=== PATIENT | male | born 1935 | race Caucasian/White ===

== ENCOUNTER 2018-08-17 11:01 | Emergency (ER) | payer OTHER ==
[~2018-08-17] VITALS: Ht 180.3 cm; Wt 112.0 kg
[~2018-08-17 11:01] MED LIST: APAP/HYDROCODON1 T13 PO; CARDIZEM CD180 MG PO; FLE10 PO; FLEXERIL10 MG PO; MSC15 PO; NEU300 PO; NORCO1 TA2 PO; PRAMIPEXOLE; PRAVASTATIN; SERTRALINE; SOTALOL80 MG PO
[2018-08-17 11:04] VITALS: Ht 180.3 cm; Wt 112.0 kg
[2018-08-17 11:46] LABS: BASOPHIL % 0.2 % (0-2); PLATELET COUNT 192 x10^3mcL (130-400); RED CELL DISTRIBUTION WIDTH 14.1 % (11.5-14.5)
[2018-08-17 11:53] LABS: CALCIUM 9.2 mg/dL (8.5-10.1); CARBON DIOXIDE 28.4 mmol/L (21-32); CHLORIDE SERUM 106 mmol/L (98-107); CREATININE SERUM 0.9 mg/dL (0.7-1.3); GLUCOSE SERUM 103 mg/dL (74-106); POTASSIUM SERUM 3.9 mmol/L (3.5-5.1); SODIUM SERUM 140 mmol/L (136-145)
[2018-08-17 12:00] LABS: ALBUMIN 3.6 g/dL (3.4-5.0); ALKALINE PHOSPHATASE 122 U/L (46-116); ALT/SGPT 19 U/L (16-63); AST/SGOT 13 U/L (15-37); BILIRUBIN TOTAL 1.04 mg/dL (0.20-1.00); TOTAL PROTEIN, SERUM 7.3 g/dL (6.4-8.2)
[2018-08-17 12:47] VITALS: BP 125/93
== END 2018-08-17 12:47 | disposition home or self-care (01) ==
LOC: ED 11:01
PROVIDERS: Emergency Medicine
DX: I48.2 Chronic atrial fibrillation (principal); Z79.01 Long term (current) use of anticoagulants
CPT/HCPCS: 36415; Q0092

== ENCOUNTER 2018-09-10 07:40 | Inpatient (IN) | payer OTHER ==
[~2018-09-10] VITALS: Ht 180.3 cm; Wt 116.1 kg
[~2018-09-10 07:40] MED LIST changes: -CARDIZEM CD180 MG PO; +DILTIAZEM HYDRO90 MG PO
[2018-09-10 07:44] VITALS: Ht 180.3 cm; Wt 116.1 kg
[2018-09-10 08:28] LABS: CALCIUM 8.5 mg/dL (8.5-10.1); CARBON DIOXIDE 26.4 mmol/L (21-32); CHLORIDE SERUM 107 mmol/L (98-107); GLUCOSE SERUM 116 mg/dL (74-106); POTASSIUM SERUM 3.9 mmol/L (3.5-5.1); SODIUM SERUM 142 mmol/L (136-145)
[2018-09-10 08:30] LABS: BASOPHIL % 0.3 % (0-2); PLATELET COUNT 192 x10^3mcL (130-400)
[2018-09-10 08:32] LABS: ALBUMIN 3.5 g/dL (3.4-5.0); ALKALINE PHOSPHATASE 110 U/L (46-116); ALT/SGPT 30 U/L (16-63); AST/SGOT 16 U/L (15-37); BILIRUBIN TOTAL 0.83 mg/dL (0.20-1.00); MAGNESIUM 1.8 mg/dL (1.8-2.4); TOTAL PROTEIN, SERUM 6.7 g/dL (6.4-8.2)
[2018-09-10 08:39] LABS: T3 TOTAL 0.95 ng/mL
[2018-09-10 08:41] LABS: FREE T4 0.9 ng/dL (0.76-1.46); FREE THYROXINE INDEX 2.1 ug/dL (1.4-4.5); T4(THYROXINE) 5.9 ug/dL (4.7-13.3)
[2018-09-10 08:42] LABS: RED CELL DISTRIBUTION WIDTH 14.8 % (11.5-14.5)
[2018-09-10] MEDS ORDERED: TRAZODONE100 MG PO (10:59)
[2018-09-10] MEDS ORDERED: PROSCAR5 MG PO (10:59)
[2018-09-10] MEDS ORDERED: COUMADIN2.5 MG PO (11:53)
[2018-09-10 12:15] LABS: CHOLESTEROL/HDL RATIO 2.9; PHOSPHOROUS 3.3 mg/dL (2.5-4.9)
[2018-09-10 14:43] VITALS: BP 123/95
[2018-09-10] MEDS ORDERED: COUMADIN5 MG PO (15:22)
[2018-09-10 17:27] VITALS: BP 126/94
[2018-09-10 17:35] VITALS: BP 126/94
[2018-09-10 17:37] LABS: UA SPECIFIC GRAVITY 1.025 (1.005-1.035); microscopic required? YES; urine erythrocyte TRACE (NEGATIVE)
[2018-09-10 17:48] LABS: AMPHETAMINE QUAL UR NONE DETECTED (See below)
[2018-09-10 20:54] VITALS: BP 130/88
[2018-09-11 05:51] VITALS: BP 128/94
[2018-09-11 07:08] LABS: CALCIUM 8.5 mg/dL (8.5-10.1); CARBON DIOXIDE 28.6 mmol/L (21-32); CHLORIDE SERUM 108 mmol/L (98-107); GLUCOSE SERUM 90 mg/dL (74-106); MAGNESIUM 1.8 mg/dL (1.8-2.4); PHOSPHOROUS 3.3 mg/dL (2.5-4.9); POTASSIUM SERUM 4.1 mmol/L (3.5-5.1); SODIUM SERUM 144 mmol/L (136-145)
[2018-09-11 07:48] LABS: BASOPHIL % 0.2 % (0-2); RED CELL DISTRIBUTION WIDTH 13.5 % (11.5-14.5)
[2018-09-11 07:51] LABS: PLATELET COUNT 166 x10^3mcL (130-400)
[2018-09-11 10:11] VITALS: BP 127/88
[2018-09-11 13:13] VITALS: BP 116/80
[2018-09-11 16:22] VITALS: BP 127/87
[2018-09-11 21:22] VITALS: BP 131/88
[2018-09-12 05:39] VITALS: BP 123/83
[2018-09-12 07:01] LABS: CALCIUM 8.8 mg/dL (8.5-10.1); CARBON DIOXIDE 30.7 mmol/L (21-32); CHLORIDE SERUM 107 mmol/L (98-107); GLUCOSE SERUM 94 mg/dL (74-106); MAGNESIUM 1.9 mg/dL (1.8-2.4); PHOSPHOROUS 3.5 mg/dL (2.5-4.9); SODIUM SERUM 143 mmol/L (136-145)
[2018-09-12 07:16] LABS: BASOPHIL % 0.3 % (0-2); PLATELET COUNT 162 x10^3mcL (130-400)
[2018-09-12 07:22] LABS: RED CELL DISTRIBUTION WIDTH 14.6 % (11.5-14.5)
[2018-09-12 12:45] VITALS: BP 116/82
[2018-09-12 17:40] VITALS: BP 109/82
[2018-09-12 21:00] VITALS: BP 122/65
[2018-09-13 06:13] VITALS: BP 110/74
[2018-09-13 07:19] LABS: CALCIUM 8.8 mg/dL (8.5-10.1); CARBON DIOXIDE 28.4 mmol/L (21-32); CHLORIDE SERUM 106 mmol/L (98-107); CREATININE SERUM 0.9 mg/dL (0.7-1.3); GLUCOSE SERUM 92 mg/dL (74-106); MAGNESIUM 1.8 mg/dL (1.8-2.4); PHOSPHOROUS 3.7 mg/dL (2.5-4.9); POTASSIUM SERUM 3.7 mmol/L (3.5-5.1); SODIUM SERUM 141 mmol/L (136-145)
[2018-09-13 08:14] LABS: BASOPHIL % 0.2 % (0-2); PLATELET COUNT 159 x10^3mcL (130-400)
[2018-09-13 08:50] VITALS: BP 118/57
[2018-09-13 10:10] VITALS: BP 118/57
[2018-09-13 12:55] VITALS: BP 132/78
[2018-09-13] MEDS ORDERED: ELIQUIS5 MG PO (13:18)
[2018-09-13 13:55] VITALS: BP 132/78
== END 2018-09-13 14:52 | disposition home or self-care (01) | DRG 291 ==
LOC: ED 07:40 → DU 11:20
PROVIDERS: Emergency Medicine; Family Medicine
PROC: 4B02XTZ Measurement of Cardiac Defibrillator, External Approach (ICD-10-PCS; principal; 2018-09-12)
DX: I11.0 Hypertensive heart disease with heart failure (principal); N17.0 Acute kidney failure with tubular necrosis; I50.21 Acute systolic (congestive) heart failure; J96.00 Acute respiratory failure, unspecified whether with hypoxia or hypercapnia; I48.92 Unspecified atrial flutter; I47.2 Ventricular tachycardia; I47.1 Supraventricular tachycardia; E78.00 Pure hypercholesterolemia, unspecified; E66.9 Obesity, unspecified; E86.0 Dehydration; E78.5 Hyperlipidemia, unspecified; G47.33 Obstructive sleep apnea (adult) (pediatric); M48.00 Spinal stenosis, site unspecified; Z96.652 Presence of left artificial knee joint; F17.290 Nicotine dependence, other tobacco product, uncomplicated; I45.10 Unspecified right bundle-branch block; F41.9 Anxiety disorder, unspecified; I48.2 Chronic atrial fibrillation; N40.0 Benign prostatic hyperplasia without lower urinary tract symptoms; Z68.35 Body mass index [BMI] 35.0-35.9, adult; Z95.810 Presence of automatic (implantable) cardiac defibrillator; Z88.5 Allergy status to narcotic agent; Z79.01 Long term (current) use of anticoagulants; Z79.899 Other long term (current) drug therapy; Z98.49 Cataract extraction status, unspecified eye; Z95.2 Presence of prosthetic heart valve; Z80.8 Family history of malignant neoplasm of other organs or systems; Z82.49 Family history of ischemic heart disease and other diseases of the circulatory system; Z72.89 Other problems related to lifestyle
CPT/HCPCS: 83880; 84439; 94150; A9500; J2785; J7030; Q0092

== ENCOUNTER 2019-05-25 18:47 | Inpatient (IN) | payer OTHER ==
[~2019-05-25] VITALS: Ht 185.4 cm; Wt 103.0 kg
[~2019-05-25 18:47] MED LIST changes: +COUMADIN2.5 MG PO; +COUMADIN5 MG PO; +ELIQUIS5 MG PO; +PROSCAR5 MG PO; -SERTRALINE; +SERTRALINE PO; +TRAZODONE100 MG PO
[2019-05-25 19:45] LABS: BASOPHIL % 0.3 % (0-2); PLATELET COUNT 227 x10^3mcL (130-400); RED CELL DISTRIBUTION WIDTH 14.3 % (11.5-14.5)
--- NOTE | 2019-05-25 19:52 | NUR ---
PT AAOX4, NO S/S OF DISTRESS NOTED, RESPIRATIONS EVEN AND UNLABORED. PT C/O BLQ ABD PAIN X 2 DAYS WITH N/V/D X 1 DAY. PT REPORTS VOMITING LAST NIGHT AND THIS MORNING WITH 7 EPISODES OF DIARRHEA TODAY. PT DENIES CHEST PAIN, SOB OR DIZZINESS. PT SITTING UP IN BED, TALKING IN FULL CLEAR SENTENCES.
[2019-05-25 19:59] LABS: CALCIUM 8.9 mg/dL (8.5-10.1); CARBON DIOXIDE 21.9 mmol/L (21-32); CHLORIDE SERUM 107 mmol/L (98-107); GLUCOSE SERUM 157 mg/dL (74-106); POTASSIUM SERUM 3.3 mmol/L (3.5-5.1); SODIUM SERUM 142 mmol/L (136-145)
[2019-05-25 20:03] LABS: ALBUMIN 3.4 g/dL (3.4-5.0); ALKALINE PHOSPHATASE 90 U/L (46-116); ALT/SGPT 17 U/L (16-63); AST/SGOT 12 U/L (15-37); BILIRUBIN TOTAL 0.65 mg/dL (0.20-1.00); LIPASE 195 IU/L (73-393)
[2019-05-25 20:29] LABS: UA SPECIFIC GRAVITY >=1.030 (1.005-1.035); microscopic required? YES; urine erythrocyte TRACE (NEGATIVE)
--- NOTE | 2019-05-25 20:41 | NUR ---
PT TAKEN TO CT VIA RPETER.
--- NOTE | 2019-05-25 20:48 | NUR ---
PT BACK FROM CT WITHOUT INCIDENT.
--- NOTE | 2019-05-25 20:55 | NUR ---
DR KHOURY MADE AWARE OF PT HR 116, NEW ORDER FOR NS BOLUS. PT MADE AWARE.
--- NOTE | 2019-05-25 21:28 | NUR ---
PT SITTING UP IN BED, PT REPORTS NAUSEA HAS IMPROVED. PT DENIES PAIN AT THIS IM. PT TALKING WITH AT BEDSIDE, NO S/S OF DISTRESS NOTED.
--- NOTE | 2019-05-25 22:38 | NUR ---
PT SITTING UP IN BED, NO S/S OF DISTRESS NOTED. PT MADE AWARE OF ADMISSION.
[2019-05-25] MEDS ORDERED: SERTRALINE50 M1 PO (22:46)
[2019-05-25] MEDS ORDERED: FINASTERIDE (22:46)
[2019-05-25] MEDS ORDERED: DILTIAZEM HCL120 M2 PO (22:46)
[2019-05-25] MEDS ORDERED: SOTALOL HCL80 MG PO (22:46)
[2019-05-25] MEDS ORDERED: LIPITOR40 MG PO (22:47)
[2019-05-25] MEDS ORDERED: MIRAPEX0.25 MG PO (22:47)
[2019-05-25] MEDS ORDERED: ELIQUIS5 M1 PO (22:47)
[2019-05-25] MEDS ORDERED: CELEBREX50 M1 (22:48)
[2019-05-25] MEDS ORDERED: MORPHINE SULFAT15 MG PO (22:48)
[2019-05-25] MEDS ORDERED: TRAZODONE100 MG PO (22:48)
--- NOTE | 2019-05-25 23:14 | NUR ---
PT SITTING UP IN BED, USING TABLET, NO S/S OF DISTRESS NOTED. PT DENIES PAIN AT THIS TIME.
--- NOTE | 2019-05-25 23:23 | NUR ---
REPORT GIVEN TO EMELIA ECKERT TO ASSUME CARE OF PT.
[2019-05-25 23:59] VITALS: BP 122/72
--- NOTE | 2019-05-26 00:09 | NUR ---
RECEIVED PT FROM ER, PT ADMIT FOR A.FIB WITH RVR, PT IS A/O X4, VERBAL RESPONSIVE, ABLE TO ANSWER ALL QUESTIONS. LUNG SOUND CLEAR BILATERAL, NO COUGH, NO SOB. PT IS ON TELE 6, A.FIB, DENY ANY CHEST PAIN OR DISCOMFORT, BOWEL SOUND PRSENT ALL 4 QUADRANTS, NO DISTENTION, NO TENDER. PEDAL PULSE PRESENT BOTH FEET, NO EDEMA, IV AT RIGHT FA, NO LEAKING, NO INFILTRAITON. ALL ADLS ASSIST, ALL NEED MET, CALL LIGHT IN REACH, WILL CONTINUE TO MONTIOR.
--- NOTE | 2019-05-26 01:00 | NUR ---
SPOKE TO . OBTAINED TELEPHONE ORDERS FOR PT.
--- NOTE | 2019-05-26 01:08 | NUR ---
RECIEVED PT FROM HARRIET ECKERT. PT RESTING IN BED COMFORTABLY AT THIS TIME. A/OX4, CALM AND COOPERATIVE. DENIES PAIN AT THIS TIME. TELE 6, SINUS TACH. DENIES CP, NV, OR DIZZINESS AT THIS TIME. BREATHING E/U ON RA. ABD SOFT AND ROUND, DENIES PAIN TO PALPATION. GENERALIZED WEAKNESS, WHEELCHAIR AT BASELINE. IV TO RFA, CDI. ORIENTED TO UNIT AND DEVICES. BED AT LOWEST POSITION. CALL LIGHT WITHIN REACH. WILL CONTINUE TO MONITOR.
--- NOTE | 2019-05-26 04:48 | NUR ---
PT COMPLAINING OF HEADACHE. MEDICATED WTIH PRN TYLENOL. WILL CONTINUE TO MONITOR.
[2019-05-26 05:35] VITALS: BP 103/64
--- NOTE | 2019-05-26 06:36 | NUR ---
PT RESTING COMFORTABLY IN BED AT THIS TIME. DENIES PAIN. BREATHING E/U ON RA. IV TO RH INTACT AND INFUSING. BED AT LOWEST POSITION. CALL LIGHT WITHIN REACH. WILL CONTINUE TO MONITOR.
--- NOTE | 2019-05-26 07:50 | NUR ---
RECEIVED PT IN BED A/A/OX4 DENIES TAPIA. RESP EVEN AND UNLABORED WITH AFIB ON TELE. DENIES ANY CP/PRESSURE AT THIS TIME. ABD SOFT, OBESE, NONTENDER WITH ACTIVE BS X4. DENIES ANY N/V AT THIS TIME. WITH REPORTS OF EPISODES OF DIARRHEA OVERNIGHT. NONE THIS AM. VOIDING FREELY. C/O CHRONIC PAIN TO LT HIP WITH SCHEDULED HIP SX WITH IN 1MONTH PER PT. STATES HE MOSTLY USES A WC AT HOME D/T PAIN BUT MOVES AROUND WITH WALKER WELL. ABLE TO REPOSITION SELF IN BED. CALL LIGHT IN REACH NEEDS ATTENDED TO.
[2019-05-26 08:18] VITALS: BP 109/67
--- NOTE | 2019-05-26 11:46 | NUR ---
RECEIVED A CALL FROM DR. POLANCO UPDATED ON PT'S CONDITION STATED HE WOULD SEE PT LATER THIS AFTERNOON OK TO GIVE FULL LIQUID DIET.
[2019-05-26] MEDS ORDERED: CIPRO500 MG PO (12:45)
[2019-05-26] MEDS ORDERED: FLA500 PO (12:46)
[2019-05-26] MEDS ORDERED: LOPERAMIDE HCL2 M1 PO (12:47)
[2019-05-26 13:46] VITALS: BP 121/79
--- NOTE | 2019-05-26 14:50 | NUR ---
PT RESTING AT THIS TIME. DENIES ANY DISCOMFORT REMAINS AT BEDSIDE. CALL LIGHT IN REACH NEEDS ATTENDED TO.
[2019-05-26 16:51] VITALS: BP 130/67
--- NOTE | 2019-05-26 18:20 | NUR ---
PT RESTING AT THIS TIME. DENIES ANY DISCOMFORT. REPORTED OCC LT HIP PAIN AFTER AMBULATION WITH WALKER BUT REFUSED ANY PAINS MEDS. PT WITH PENDING D/C IF CLEARED BY GI. AWAITING CONSULTATION. CALL LIGHT IN REACH NEEDS ATTENDED TO.
--- NOTE | 2019-05-26 20:00 | NUR ---
IV TO R HAND DC INTACT. TELE MONITOR RETURNED TO [employer]. DISCHARGE INSTRUCTIONS GIVEN. SON AT BEDSIDE. PT ESCORTED TO LOBBY VIA W/C IN NO ACUTE DISTRESS.
== END 2019-05-26 20:02 | disposition home or self-care (01) | DRG 392 ==
LOC: ED 18:47 → DU 22:27
PROVIDERS: Emergency Medicine; ADMIT Internal Medicine Pulmonary Disease
DX: A08.4 Viral intestinal infection, unspecified (principal); N39.0 Urinary tract infection, site not specified; I42.9 Cardiomyopathy, unspecified; I10 Essential (primary) hypertension; I48.91 Unspecified atrial fibrillation; I34.1 Nonrheumatic mitral (valve) prolapse; E86.0 Dehydration; E78.5 Hyperlipidemia, unspecified; K40.90 Unilateral inguinal hernia, without obstruction or gangrene, not specified as recurrent; G89.29 Other chronic pain; M25.552 Pain in left hip; Z87.891 Personal history of nicotine dependence; Z95.810 Presence of automatic (implantable) cardiac defibrillator
CPT/HCPCS: 87046; 87046-59; G0378; J1644; J1956; J2270; J2405; J3480; J3490; J7030; Q0092